=== PATIENT | male | born 1945 | race Caucasian/White ===

== ENCOUNTER → 2019-09-13 | Day surgery (SDC) | payer MEDICARE ==
[2011-10-23 11:21] VITALS: BP 166/92
== END ==
LOC: MSO 08:23
DX: H25.12 Age-related nuclear cataract, left eye (principal); I11.0 Hypertensive heart disease with heart failure; I50.9 Heart failure, unspecified; E78.00 Pure hypercholesterolemia, unspecified; Z90.49 Acquired absence of other specified parts of digestive tract; Z79.82 Long term (current) use of aspirin
CPT/HCPCS: 00142; J0171; J2250; V2632

== ENCOUNTER → 2019-10-18 | Day surgery (SDC) | payer MEDICARE ==
[2011-10-23 11:21] VITALS: BP 166/92
== END ==
LOC: MSO 07:41
DX: H25.11 Age-related nuclear cataract, right eye (principal); I11.0 Hypertensive heart disease with heart failure; I50.9 Heart failure, unspecified; E78.00 Pure hypercholesterolemia, unspecified; Z79.899 Other long term (current) drug therapy; Z79.82 Long term (current) use of aspirin
CPT/HCPCS: 00142; J0171; J2250; V2632